=== PATIENT | male | born 1955 | race Caucasian/White ===

== ENCOUNTER 2016-06-18 07:14 | Day surgery (SDC) | payer OTHER ==
[~2016-06-18] VITALS: Ht 162.6 cm; Wt 83.9 kg
[2016-06-18] MEDS ORDERED: AMARYL2 MG PO (07:59)
[2016-06-18] MEDS ORDERED: GLUCOPHAGE1000 MG PO (07:59)
[2016-06-18] MEDS ORDERED: ZESTRIL5 MG PO (07:59)
[2016-06-18] MEDS ORDERED: GOOD SENSE OMEP20 MG PO (08:00)
[2016-06-18] MEDS ORDERED: fentaNYL 0.05 MG/ML VIAL ONE (08:29)
[2016-06-18] MEDS ORDERED: LIDOCAINE 2% 100 MG/5 ML UJET TP ONE (08:29)
== END 2016-06-18 09:59 | disposition home or self-care (01) ==
LOC: MDS 07:14 → MMU 07:17 → MDS 09:59
PROVIDERS: ATTEND Internal Medicine Gastroenterology
DX: D12.3 Benign neoplasm of transverse colon (principal); I10 Essential (primary) hypertension; D12.8 Benign neoplasm of rectum; E11.9 Type 2 diabetes mellitus without complications; E66.9 Obesity, unspecified
CPT/HCPCS: 45385; 82948; J3010